=== PATIENT | female | born 1970 | race African-American/Black ===

== ENCOUNTER 2018-08-22 12:25 | Day surgery (SDC) | payer BC ==
[2018-08-21 16:40] VITALS: BMI 38.9
[2018-08-22] MEDS ORDERED: Oxymetazoline HCl 0.05% ( 15 ML ) ONE (13:09)
[2018-08-22 13:17] LABS: Anion Gap 11 mmol/L (10-20); BUN (Urea Nitrogen) 11 mg/dL (7.0-18.7); Calc. Creatinine Clearance 150 mL/min (70-130); Calcium 10.2 mg/dL (7.8-10.44); Carbon Dioxide 31 mmol/L (22-29); Chloride 101 mmol/L (98-107); Estimated GFR-MDRD 78; Glucose 186 mg/dL (70-105); Potassium 3.9 mmol/L (3.5-5.1); Sodium 139 mmol/L (136-145)
[2018-08-22] MEDS ORDERED: EPINEPHrine 1 MG/ML AMP ONE (14:12)
[2018-08-22] MEDS ORDERED: Sodium Chloride 0.9% 10 ML ONE (14:12)
[2018-08-22] MEDS ORDERED: Lidocaine 1% w/Epinephrine 1:100K 20 ML VIAL ONE (14:12)
[2018-08-22] MEDS ORDERED: Fentanyl 100 MCG/2 ML VIAL ONE (14:24)
[2018-08-22] MEDS ORDERED: SUGAMMADEX SODIUM 500 MG/5 ML VIAL ONE (15:45)
[2018-08-22] MEDS ORDERED: Glycopyrrolate 0.2 MG/ML 5 ML SYRINGE ONE (16:35)
[2018-08-22] MEDS ORDERED: diphenhydrAMINE 50 MG/ML VIAL ONE (16:35)
[2018-08-22] MEDS ORDERED: Ondansetron PF 4 MG/2 ML Vial ONE (16:35)
[2018-08-22] MEDS ORDERED: Metoclopramide HCl 10 MG/2 ML VIAL ONE (16:35)
[2018-08-22] MEDS ORDERED: PROPOFOL 200 MG/20 ML VIAL ONE (16:35)
[2018-08-22] MEDS ORDERED: Rocuronium Bromide 10 MG/ML (10ML VIAL) ONE (16:35)
[2018-08-22] MEDS ORDERED: Lidocaine 1% PF 5 ML VIAL ONE (16:35)
[2018-08-22] MEDS ORDERED: Labetalol HCl 100 MG/20 ML VIAL ONE (16:40)
[2018-08-22] MEDS ORDERED: Morphine 4 MG/ML VIAL ONE (17:59)
[2018-08-22] MEDS ORDERED: HYDROcodone/Acetaminophen 5/325 mg Tablet ONE ×2 (19:21→19:22)
[2018-08-22] MEDS ORDERED: Hydrocodone-Acetamin 15 ML UDCUP ONE (19:31)
--- NOTE | 2018-08-23 07:05 | EKG ---
Test Reason : PREOP Blood Pressure : / mmHG Vent. Rate : 074 BPM Atrial Rate : 074 BPM P-R Int : 172 ms QRS Dur : 094 ms QT Int : 400 ms P-R-T Axes : 045 068 066 degrees QTc Int : 444 ms Normal sinus rhythm Nonspecific T wave abnormality Abnormal ECG No previous ECGs available Confirmed by DR. Uziel ROTHMAN ([id number]) on 08/23/2018 7:04:49 AM Referred By: SONNY Confirmed By:DR. Uziel ROTHMAN
--- NOTE | 2018-08-23 13:35 | OP ---
DATE OF PROCEDURE: 08/22/2018 PREOPERATIVE DIAGNOSES: 1. Sleep apnea. 2. Obstructive uvular hypertrophy. 3. Obstructive inferior turbinate hypertrophy. 4. Obstructive tonsillar hypertrophy. PROCEDURES PERFORMED: 1. Tonsillectomy. 2. Submucosal resection of inferior turbinates. 3. Uvulectomy. PROCEDURE IN DETAIL: TONSILLECTOMY: After consent was obtained, the patient was identified, brought to the operating room, and placed on the operating table in the supine position. General endotracheal anesthesia and intravenous access were obtained and we proceeded with positioning the patient for oropharyngeal surgery. Oropharyngeal exposure was obtained with a Storm-Matt mouth gag after a head drape was placed and secured with a towel clip. The Storm-Matt mouth gag was then suspended from the [place] tray and palatal elevation was achieved with a red rubber catheter. The right tonsil was addressed first. We used a curved Allis to grasp the tonsil and retract it medially as an anterior pillar incision was made with a #12 blade. The retrotonsillar fascial plane was then established and blunt dissection was performed with the suction cautery. Blood vessels were anticipated, identified, and cauterized as they were encountered. Ultimately, dissection was carried to the posterior tonsillar pillar mucosa which was incised hemostatically, as well as the base of tongue connection. The tonsil was then passed off as a specimen and bleeding points within the tonsillar bed were cauterized under direct visualization. We subsequently turned our attention to the contralateral side, where using a similar technique, a near identical procedure was performed. Again, the tonsil was grasped and retracted medially with a curved Allis as an anterior pillar incision was made with a #12 blade. The retrotonsillar fascial plane was established and while the anterior pillar was retracted medially, the hemostatic blunt dissection of the tonsil with a suction cautery was performed with blood vessels anticipated, identified, and cauterized as they were encountered. Again, dissection continued to the base of tongue and posterior tonsillar pillar mucosa which was incised in a hemostatic fashion. The tonsillar beds were then carefully inspected and bleeding points were identified and cauterized with a suction cautery. After this portion of the procedure, hemostasis was completely obtained. The patient's oral cavity was copiously irrigated with iced saline and subsequently suctioned. We then used the red rubber catheter to suction the gastric contents and the patient was subsequently aroused, awakened, and extubated without difficulty and transported to the recovery room in stable condition. There were no complications. SUBMUCOSAL RESECTION OF INFERIOR TURBINATES: After consent was obtained, the patient was identified, brought to the operating room, and placed on the operating room table in the supine position. Consent was obtained, notifying the patient of the possibility of additional infections, bleeding, brain injury, and eye/orbital injury. The patient was placed on the operating room table, and general endotracheal anesthesia and intravenous access was obtained. The patient was then positioned, prepped and draped for endoscopic sinus surgery. Nasal preparation included trimming nasal vestibular hairs and spraying in topical Afrin. We then placed Afrin topical solution on nasal pledgets and strategically located them intranasally. The perinasal mucosa was injected with 1% lidocaine with 1:100,000 epinephrine in the submucoperichondrial plane of the septum, lateral nasal wall, and anterior to the uncinate. The patient was then prepped and draped in a sterile fashion and positioned for endoscopic sinus surgery. With the 0-degree endoscope, the patient underwent systematic nasal endoscopy. There were no suspicious internasal masses or lesions identified. We then focused our attention to the osteomeatal complex region under the middle turbinate. The inferior turbinates were visualized with a 0 degree endoscope and outfractured with a [place] elevator. The inferior medial aspect was cauterized with the electrocautery. Hemostasis was obtained . After adequate airway was established, we turned our attention to the contralateral side and used a similar procedure. Again, a [place] elevator was used to outfracture inferior turbinates under endoscopic visualization. With a suction cautery, the free inferior medial aspect was cauterized under direct visualization along the length of the inferior turbinate. At this point, we then turned our attention to the contralateral side and proceeded with endoscopic sinus surgery. At the completion of the case, Rice keel splints were placed in the ethmoid cavities after the ethmoidectomy. There were no complications. The patient tolerated the procedure well and was discharged to the recovery room in stable condition prior to return to the preoperative day stay with ultimate discharge home. Prescriptions for pain medication and antibiotics were provided. The patient received intramuscular Depo-Medrol during the case. UVULECTOMY: The uvula was then grasped and retracted inferiorly as vertical incisions were made on either side of the insertion of the uvula into the soft palate. A crescentic portion of soft palate was then removed on each side of the relaxing incision, and the uvula was transected at the site where it normally would have interfaced with the soft palate. The anterior and posterior aspect of the wound were then reapproximated with interrupted chromic sutures. The patient was then awakened, extubated, and transferred to recovery where patient remained in stable condition prior to discharge home. Job ID: [id number]
== END 2018-08-22 20:05 | disposition home or self-care (01) ==
LOC: SDC 12:25
PROVIDERS: ATTEND Specialist
PROC: 0CBNXZZ Excision of Uvula, External Approach (ICD-10-PCS; principal; 2018-08-22)
PROC: 0CTPXZZ Resection of Tonsils, External Approach (ICD-10-PCS; principal; 2018-08-22)
PROC: 09TL8ZZ Resection of Nasal Turbinate, Via Natural or Artificial Opening Endoscopic (ICD-10-PCS; principal; 2018-08-22)
DX: J34.3 Hypertrophy of nasal turbinates (principal); J35.1 Hypertrophy of tonsils; K13.79 Other lesions of oral mucosa; I10 Essential (primary) hypertension; E11.9 Type 2 diabetes mellitus without complications; D64.9 Anemia, unspecified; F41.9 Anxiety disorder, unspecified; G89.29 Other chronic pain; Z79.4 Long term (current) use of insulin; Z79.899 Other long term (current) drug therapy
CPT/HCPCS: 36415; 36416; 80048; 85014; 88304; 93005; 93010; J0171; J1200; J2001; J2270; J2405; J2704; J2765; J3010

== ENCOUNTER 2021-05-03 20:50 | Emergency (ER) | payer BC ==
[2021-05-03] MEDS ORDERED: Morphine 4 MG/ML VIAL ONE (21:57)
[2021-05-03] MEDS ORDERED: Ondansetron PF 4 MG/2 ML Vial ONE ×2 (21:57→23:06)
[2021-05-03] MEDS ORDERED: Cyclobenzaprine 10 MG TAB ONE (23:06)
== END 2021-05-04 00:15 | disposition home or self-care (01) ==
LOC: ERS 20:50
DX: M54.2 Cervicalgia (principal); M54.9 Dorsalgia, unspecified; I10 Essential (primary) hypertension; E11.9 Type 2 diabetes mellitus without complications; V49.9XXA Car occupant (driver) (passenger) injured in unspecified traffic accident, initial encounter; Z79.899 Other long term (current) drug therapy
CPT/HCPCS: 70450; 71260; 72125; 74177; 96374; 96375; 96376; J2270; J2405